=== PATIENT | male | born 1980 | race African-American/Black ===

== ENCOUNTER 2019-06-23 17:58 | Inpatient (IN) | payer BC, SELFPAY ==
[~2019-06-23 17:58] MED LIST: Iopamidol 370 76% 100 ML VIAL ONE
[2019-06-23 18:13] LABS: Hemoglobin 15.8 g/dL (14.0-18.0); Mean Corpuscular HGB CONC 32.6 g/dL (32.0-36.0); Mean Corpuscular Hemoglobin 29.1 pg (27.0-31.0); Mean Corpuscular Volume 89.2 fL (78.0-98.0); Mean Platelet Volume 7.7 fL (7.4-10.4); Platelet Count 285 thou/uL (130-400); RBC Distribution Width 11.7 % (11.5-14.5); Red Blood Cell (RBC) Count 5.45 mill/uL (4.70-6.10); White Blood Cell (WBC) Count 4.2 thou/uL (4.8-10.8)
--- NOTE | 2019-06-23 18:16 | RAD ---
Chest AP view INDICATION: Dizziness and fainting with history of ST elevated myocardial infarction COMPARISON: None FINDINGS: Lungs:The lungs are clear Cardiac silhouette:The cardiomediastinal silhouette appears within normal limits. Pulmonary vasculature:Normal Pleural spaces:No pleural effusion or pneumothorax is demonstrated. Upper abdomen:No abnormality seen. Osseous structures: No acute osseous abnormality. Additional findings:None. IMPRESSION: No acute cardiopulmonary abnormality.
[2019-06-23 18:19] LABS: INR-International Normal Ratio 1.1; Prothrombin Time 13.7 SEC (12.0-14.7)
--- NOTE | 2019-06-23 18:19 | CT ---
CT Brain WO Con: 06/23/2019 6:05 PM CLINICAL HISTORY: ; History of myocardial infarction; history of fall. IMAGING TECHNIQUE: Multiple CT images were obtained of the brain without IV contrast. COMPARISON: None. FINDINGS: Brain: No acute infarct or hemorrhage is evident. No midline shift. Ventricles: Normal. No hydrocephalus. Skull: Intact. Visualized Paranasal sinuses: Small air-fluid levels are seen within the sphenoid sinus and right max illary sinus which may reflect sequela of an acute sinusitis. No visible fractures grossly evident. There is no report of trauma by Dr. Acosta in the right maxillary region. Mastoid air cells:Clear. Extracranial soft tissues:Normal. IMPRESSION: No acute intracranial abnormality. Small air-fluid levels within the right maxillary sinus and right sphenoid sinus may reflect acute si nusitis. Findings called to Dr. Acosta at 6:16 PM on June 23, 2019.
[2019-06-23 18:20] LABS: PTT 21.7 SEC (22.9-36.1)
[2019-06-23] MEDS ORDERED: Heparin (Artline) 1,000 ML ONE (18:24)
[2019-06-23 18:26] LABS: ALT (SGPT) 20 U/L (8-55); AST (SGOT) 23 U/L (5-34); Albumin 4.5 g/dL (3.5-5.0); Alkaline Phosphatase 96 U/L (40-110); Anion Gap 15 mmol/L (10-20); BUN (Urea Nitrogen) 13 mg/dL (8.9-20.6); Bilirubin, Total 0.7 mg/dL (0.2-1.2); CK (CPK) 206 U/L (30-200); Calc. Creatinine Clearance 0 mL/min (70-130); Carbon Dioxide 27 mmol/L (22-29); Chloride 104 mmol/L (98-107); Estimated GFR-MDRD 58; Globulin 3.3 g/dL (2.4-3.5); Glucose 96 mg/dL (70-105); Potassium 3.9 mmol/L (3.5-5.1); Protein, Total 7.8 g/dL (6.0-8.3); Sodium 142 mmol/L (136-145)
[2019-06-23 18:35] LABS: Eosinophils 6 % (0-10); Lymphocytes 26 % (21-51); MDiff Complete? YES; Monocytes 7 % (0-10); Neutrophil 20 % (42-75); Platelet Morphology Comment Appears Adequate; Polychromasia SLIGHT = 2-3 cells (100X) (0-2/hpf); Reactive Lymphocytes 39 % (0-10); Reflex for Review?? YES
[2019-06-23] MEDS ORDERED: Fentanyl 100 MCG/2 ML VIAL ONE (18:39)
[2019-06-23] MEDS ORDERED: Midazolam HCl 2 mg/2 ml Vial ONE (18:39)
[2019-06-23 18:48] LABS: CKMB 1.9 ng/mL (0-6.6)
[2019-06-23] MEDS ORDERED: Sodium Chloride 0.9% 200 ML IV PRN (19:00)
[2019-06-23] MEDS ORDERED: Sodium Chloride 0.9% 1,000 ML IV SCH (19:00)
[2019-06-23] MEDS ORDERED: Acetaminophen/Codeine 30-300mg Tablet PO PRN ×2 (19:00)
[2019-06-23] MEDS ORDERED: Ondansetron PF 4 MG/2 ML Vial ONE (19:10)
--- NOTE | 2019-06-23 20:53 | CON ---
DATE OF CONSULTATION: HISTORY OF PRESENT ILLNESS: Benita Ornelas is a 38-year-old black male without previous history except hypertension, which he states he does not take any medications. Today he was at [employer], became lightheaded and dizzy and then apparently had a syncopal episode, falling to the ground, striking his chin. He does not remember falling or hitting the ground, just remembers waking up on the ground. Paramedics were called. He was brought to the ER, found to have abnormal EKG and STEMI has been activated. He denies any chest discomfort. He denies any exertional dyspnea. He has never had a previous syncopal episode. He denies any nausea, vomiting, or diarrhea recently. PAST MEDICAL HISTORY: Hypertension, untreated. No history of diabetes or hypercholesterolemia. MEDICATIONS: None. ALLERGIES: NONE. OPERATIONS: None. SOCIAL HISTORY: He occasionally smokes and drinks. FAMILY HISTORY: Negative for coronary artery disease. PHYSICAL EXAMINATION: VITAL SIGNS: Blood pressure 130/82, pulse of 90. HEENT: PERRL. NECK: Supple. CHEST: Clear. CARDIAC: S1 and S2 normal without any S3, S4, or murmurs. ABDOMEN: Normal bowel sounds without tenderness or organomegaly. EXTREMITIES: Revealed no clubbing, cyanosis, or edema. NEUROLOGIC: Grossly intact. SKIN: Warm and dry. LABORATORY DATA: EKG revealed normal sinus rhythm with ST elevation of approximately 2 mm in V2, 1 mm in V1. The patient has undergone a head CT, which apparently was unremarkable. Sodium 142, potassium 3.9, chloride 104, carbon dioxide 27, BUN 13, creatinine 1.37. Troponin I 0.046. INR 1.1, white count 4200, hemoglobin 15.8, hematocrit 48.6, platelets 285,000. IMPRESSION: 1. Syncopal episode of uncertain etiology. 2. Abnormal EKG. These findings could represent an anterior ST elevation myocardial infarction, left ventricular hypertrophy or early repolarization. He does not have any chest discomfort; however, with circumstance definitely should go to the civil laboratory technician emergently. 3. Hypertension, untreated. 4. Chronic kidney disease. PLAN: Situation discussed with patient. It is recommended that he undergo emergent catheterization. Risks were discussed including , myocardial infarction, dye reaction, vascular injury, CVA, transfusion, limb loss, renal loss, etc. Also risk of intervention with PTCA and stent placement were discussed including , myocardial infarction, emergent CABG, restenosis, stent thrombosis, vessel perforation, etc. He understands and agrees to proceed. Also, urine drug screen will be obtained. Job ID: [id number]
[2019-06-23 21:16] VITALS: BMI 29.5
[2019-06-24 03:15] LABS: Amphetamine Not Detected (NotDetected); Barbiturates Screen Not Detected (NotDetected); Benzodiazepine Screen Not Detected (NotDetected); Cocaine Metabolite Screen Not Detected (NotDetected); Medtox Control Line Valid? VALID (VALID); Medtox Reader # READER 4; Methadone Not Detected (NotDetected); Methamphetamine Not Detected (NotDetected); Opiate Screen Not Detected (NotDetected); Oxycodone Screen Not Detected (NotDetected); Phencyclidine (PCP) Not Detected (NotDetected); THC/Cannabinoid Screen Detected (NotDetected); Tricyclic Screen Not Detected (NotDetected)
[2019-06-24] MEDS ORDERED: Senokot S 8.6-50 MG TAB PO PRN (03:53)
[2019-06-24] MEDS ORDERED: Calcium Carbonate 500 MG ChewTAB PO PRN (03:53)
[2019-06-24] MEDS ORDERED: Acetaminophen 325 MG TAB PO PRN (03:53)
[2019-06-24] MEDS ORDERED: Mag-Al 1200 mg/1200 mg/30 ML UDCUP PO PRN (03:53)
[2019-06-24] MEDS ORDERED: Polyethylene Glycol 3350 17 GM Packet PO PRN (03:53)
[2019-06-24] MEDS ORDERED: Ondansetron ODT 4 MG TAB PO PRN (03:53)
[2019-06-24] MEDS ORDERED: Ondansetron PF 4 MG/2 ML Vial IVP PRN (03:53)
[2019-06-24] MEDS ORDERED: Labetalol HCl 100 MG/20 ML VIAL SLOW IVP PRN (04:06)
--- NOTE | 2019-06-24 04:40 | CON ---
DATE OF CONSULTATION: CHIEF COMPLAINT: Syncopal episode. REASON FOR CONSULTATION: Medical management. HISTORY OF PRESENT ILLNESS: The patient is a 38-year-old male with hypertension, currently on no medications, presented to the emergency room with a syncopal episode while at work. Prior to syncope, he felt weak and dizzy. He had mild facial pain. There was no nausea, vomiting, diaphoresis, or palpitations reported. The patient underwent emergent cardiac catheterization for STEMI activation that showed normal coronaries with moderately impaired ventricular function of 35%. PAST MEDICAL HISTORY: Hypertension. PAST SURGICAL HISTORY: Dental surgeries. ALLERGIES: NO KNOWN DRUG ALLERGIES. MEDICATIONS: Reviewed with the patient and none. SOCIAL HISTORY: He occasionally smokes and drinks. FAMILY HISTORY: Negative for coronary artery disease. REVIEW OF SYSTEMS: All other review of systems were reviewed and were found negative. PHYSICAL EXAMINATION: VITAL SIGNS: Temperature 98.2, pulse rate of 71, respiration of 16, blood pressure 143/96, O2 saturation 99% on room air. Orthostatic vitals are negative. GENERAL: A 38-year-old male in no apparent distress. LUNGS: Clear to auscultation bilaterally. No wheezing, rales, or rhonchi. HEART: S1 and S2 present. Regular rate and rhythm. No rubs or gallops. ABDOMEN: Soft, bowel sounds present. No rebound or guarding. EXTREMITIES: No edema or calf tenderness. NEUROLOGIC: Grossly nonfocal. Moves all 4 extremities. Power was 5/5 in all extremities. [id number] was normal. PSYCHIATRY: Alert, awake, oriented x3. PERIPHERAL VASCULAR: Radial pulses palpable bilaterally. MUSCULOSKELETAL: No joint swelling tenderness. LABORATORY FINDINGS: WBC of 4.2 with hemoglobin 15.8, neutrophil of 20%, with reactive lymphocytes of 39%. Creatinine of 1.37 with BUN of 13. LFTs in normal range. Troponin was 0.046. Urine drug screen was positive for cannabinoid. CT scan of the brain by my review was negative. IMAGING STUDIES: Chest x-ray by my review was negative for acute findings. EKG by my review showed sinus rhythm with ST elevation in anteroseptal leads. IMPRESSION: 1. Syncope of unclear etiology. 2. Acute kidney injury versus chronic kidney disease stage 3. 3. Abnormal EKGs. 4. Normal coronaries. 5. Untreated hypertension. 6. Tobacco dependence. 7. Cannabis abuse. 8. Leukopenia with lymphocytosis, suspected recent viral infection. 9. Ejection fraction of 35% on the cardiac catheterization. PLAN: The patient has been started on carvedilol. We will continue telemetry monitoring. Echocardiogram has been ordered. We will recheck the electrolytes in a.m. Lifestyle modification was emphasized. We will restart IV fluids if needed based on the a.m. labs. We will repeat CBC after 24 hours. Add p.r.n. medications. The patient understands the above plan of care. Thank you Dr. Mendes for this consultation. We will follow with you. Job ID: [id number]
[2019-06-24 05:07] LABS: Anion Gap 12 mmol/L (10-20); BUN (Urea Nitrogen) 13 mg/dL (8.9-20.6); Calc. Creatinine Clearance 124 mL/min (70-130); Calcium 8.4 mg/dL (7.8-10.44); Carbon Dioxide 24 mmol/L (22-29); Chloride 107 mmol/L (98-107); Estimated GFR-MDRD Greater than 90; Glucose 109 mg/dL (70-105); Magnesium 2.3 mg/dL (1.6-2.6); Potassium 4.1 mmol/L (3.5-5.1); Sodium 139 mmol/L (136-145)
[2019-06-24] MEDS: Carvedilol 3.125 MG TAB PO SCH ×2 (09:02→18:36)
[2019-06-24] MEDS: cloNIDine 0.1 MG TAB PO PRN (13:37)
[2019-06-24] MEDS: hydrALAZINE 20 MG/ML VIAL SLOW IVP PRN (15:13)
[2019-06-24] MEDS ORDERED: ALPRAZolam 0.25 MG TAB PO PRN (18:08)
[2019-06-25] MEDS: cloNIDine 0.1 MG TAB PO PRN (00:03)
[2019-06-25] MEDS: hydrALAZINE 20 MG/ML VIAL SLOW IVP PRN (01:05)
[2019-06-25 04:50] LABS: #Basophils 0.1 thou/uL (0.0-0.2); #Eosinphils 0.2 thou/uL (0.0-0.7); #Monocytes 0.4 thou/uL (0.11-0.59); #Neutrophils 1.7 thou/uL (1.40-6.50); %Basophils 2.1 % (0.0-1.0); %Eosinophils 3.9 % (0.0-10.0); %Lymphocytes 46.4 % (21.0-51.0); %Monocytes 8.4 % (0.0-10.0); %Neutrophils 39.1 % (42.0-75.0); Hemoglobin 14.3 g/dL (14.0-18.0); Mean Corpuscular HGB CONC 31.6 g/dL (32.0-36.0); Mean Corpuscular Hemoglobin 27.7 pg (27.0-31.0); Mean Corpuscular Volume 87.7 fL (78.0-98.0); Mean Platelet Volume 7.7 fL (7.4-10.4); Platelet Count 275 thou/uL (130-400); RBC Distribution Width 11.6 % (11.5-14.5); Red Blood Cell (RBC) Count 5.18 mill/uL (4.70-6.10); White Blood Cell (WBC) Count 4.3 thou/uL (4.8-10.8)
[2019-06-25 05:15] LABS: Anion Gap 10 mmol/L (10-20); BUN (Urea Nitrogen) 9 mg/dL (8.9-20.6); Calc. Creatinine Clearance 145 mL/min (70-130); Calcium 8.5 mg/dL (7.8-10.44); Carbon Dioxide 24 mmol/L (22-29); Cardiac Risk 5.1 (Less than 4.5); Chloride 106 mmol/L (98-107); Cholesterol 127 mg/dl (< 200 Desired); Estimated GFR-MDRD Greater than 90; Glucose 89 mg/dL (70-105); HDL Cholesterol 25 mg/dL (>60 Neg Risk); LDL Cholesterol, Calculated 85 mg/dL; Potassium 3.8 mmol/L (3.5-5.1); Sodium 136 mmol/L (136-145); Triglycerides 83 mg/dL (Less than 150)
[2019-06-25] MEDS: Carvedilol 3.125 MG TAB PO SCH ×2 (09:05→18:08)
--- NOTE | 2019-06-25 13:29 | PDOC.HOSPP ---
- Subjective Encounter Date: 06/25/19 Encounter Time: 07:00 Subjective: Pt seen for followup re; jaw swelling. c/o swelling over the right side of his jaw, started after syncopal episode. - Objective Vital Signs & Weight: Vital Signs (12 hours) Temp Pulse Pulse Pulse Resp BP BP 06/25/19 10:20 06/25/19 10:17 71 67 142/91 H 141/88 H 06/25/19 04:00 98.2 F 65 16 06/25/19 01:57 BP BP Pulse Ox Pulse Ox Pulse Ox 06/25/19 10:20 95 06/25/19 10:17 94 L 99 06/25/19 04:00 142/88 H 98 06/25/19 01:57 136/80 Weight Weight 200 lb 6 oz I&O: 06/24/19 06/25/19 06/26/19 06:59 06:59 06:59 Intake Total 1105 120 Output Total 350 Balance 755 120 Result Diagrams: 06/25/19 04:29 06/25/19 04:29 Additional Labs: Labs and MARs reviewed by me EKG Reviewed by me: Yes (Tele: NSR) Hospitalist ROS - Review of Systems ENT: reports: other (jaw swelling) Cardiovascular: denies: chest pain, palpitations, orthopnea, paroxysmal noc. dyspnea, edema, light headedness Gastrointestinal: denies: nausea, vomiting, abdominal pain, diarrhea, constipation, melena, hematochezia - Medication Medications: Active Medications Generic Name Dose Route Start Last Admin Trade Name Freq PRN Reason Stop Dose Admin Acetaminophen 650 mg 06/24/19 03:53 06/24/19 18:37 Tylenol PO 650 mg Q4H PRN Administration Headache/Fever/Mild Pain (1-3) Alprazolam 0.25 mg 06/24/19 18:08 06/24/19 18:37 Xanax PO 0.25 mg BIDPRN PRN Administration Anxiety Carvedilol 3.125 mg 06/24/19 08:00 06/25/19 09:05 Coreg PO 3.125 mg BID-WM RONNI Administration Clonidine 0.1 mg 06/24/19 10:42 06/25/19 00:03 Catapres PO 0.1 mg Q4H PRN Administration SBP Greater Than 170 Hydralazine HCl 10 mg 06/24/19 10:42 06/25/19 01:05 Apresoline SLOW IVP 10 mg Q6H PRN Administration SBP Greater Than 170 Labetalol HCl 10 mg 06/24/19 04:06 06/24/19 18:37 Normodyne SLOW IVP 10 mg Q4H PRN Administration Systolic BP > 180 Sacubitril/Valsartan 1 tab 06/24/19 21:00 06/25/19 09:04 Entresto 24 Mg-26 Mg Tablet PO 1 tab BID RONNI Administration - Exam General Appearance: NAD Eye: anicteric sclera ENT: moist mucosa ENT - other findings: swelling over right side of mandible near TMJ Neck: supple Heart: RRR, no rubs Respiratory: CTAB Gastrointestinal: soft, non-tender Extremities: no cyanosis Skin: no lesions Neurological: no weakness Psychiatric: normal affect, normal behavior Hosp A/P (1) Jaw swelling Code(s): R22.0 - LOCALIZED SWELLING, MASS AND LUMP, HEAD Status: Acute (2) Cardiomyopathy Code(s): I42.9 - CARDIOMYOPATHY, UNSPECIFIED Status: Acute (3) Tobacco abuse Code(s): Z72.0 - TOBACCO USE Status: Chronic (4) Cannabis abuse Code(s): F12.10 - CANNABIS ABUSE, UNCOMPLICATED Status: Chronic - Plan Continue Coreg and Entresto. Check mandibular x-rays. Pt counseled re; tobacco and cannabis cessation.
--- NOTE | 2019-06-25 14:59 | RAD ---
Radiograph mandible 4 views: DATE: 06/25/2019 HISTORY: 38-year-old male with traumatic jaw pain after fall. FINDINGS: No fracture is identified. However, noncontrast CT is much more sensitive than plain radiographs of t he mandible for the detection of fractures. IMPRESSION: Negative
[2019-06-25 19:52] VITALS: TEMP 98.3
[2019-06-25 19:54] VITALS: BP 156/88
--- NOTE | 2019-06-26 02:33 | DIS ---
DATE OF ADMISSION: 06/23/2019 DATE OF DISCHARGE: 06/25/2019 DISCHARGE DIAGNOSES: 1. Nonischemic cardiomyopathy with ejection fraction of 35% to 40% at catheterization. 2. Syncope of uncertain etiology. 3. Abnormal EKG with ST-elevation in V1 and V2, which may be related to early repolarization. 4. Normal coronary arteries. 5. Hypertension with systolics in the 140s at the present time. 6. Urine drug screen positive for cannabinoids. DISCHARGE MEDICATIONS: 1. Carvedilol 3.125 b.i.d. 2. Entresto 24/26 b.i.d. DISCHARGE DISPOSITION: The patient will be discharged with one-week monitor for further evaluation of his episode of syncope. HOSPITAL COURSE: Mr. Ornelas was brought from [facility], where he works. He apparently had an episode of syncope. He did have an abnormal EKG with ST- elevation in V1 and V2. He was not having any chest discomfort. However, with EKG findings, it was felt best taken to the lab systems analyst. Catheterization was found to have moderate left ventricular hypokinesis with ejection fraction of 35% to 40%, but normal coronary arteries. It was felt that he had a nonischemic cardiomyopathy. No arrhythmias were seen during this admission. He was placed on increasing dose of carvedilol and Entresto. He will be seen in three weeks for followup. Job ID: [id number] [facility]
== END 2019-06-25 19:30 | disposition home or self-care (01) | DRG 287 ==
LOC: ERS 17:58 → 2NO 18:58
PROVIDERS: ADMIT Internal Medicine Cardiovascular Disease; ATTEND Internal Medicine Cardiovascular Disease
PROC: 4A023N7 Measurement of Cardiac Sampling and Pressure, Left Heart, Percutaneous Approach (ICD-10-PCS; principal; 2019-06-23)
PROC: B2111ZZ Fluoroscopy of Multiple Coronary Arteries using Low Osmolar Contrast (ICD-10-PCS; 2019-06-23)
PROC: B2151ZZ Fluoroscopy of Left Heart using Low Osmolar Contrast (ICD-10-PCS; 2019-06-23)
DX: I42.8 Other cardiomyopathies (principal); N17.9 Acute kidney failure, unspecified; R55 Syncope and collapse; R94.31 Abnormal electrocardiogram [ECG] [EKG]; I12.9 Hypertensive chronic kidney disease with stage 1 through stage 4 chronic kidney disease, or unspecified chronic kidney disease; N18.3 Chronic kidney disease, stage 3 (moderate); F17.200 Nicotine dependence, unspecified, uncomplicated; F12.10 Cannabis abuse, uncomplicated; D72.819 Decreased white blood cell count, unspecified
CPT/HCPCS: 12013; 36415; 70110; 70450; 71045; 80048; 80053; 80061; 80306; 82550; 82553; 83735; 84443; 84484; 85025; 85060; 85347; 85610; 85730; 93005; 93306; 93458; 93798; 94760; 96374; 99152; C1769; J0360; J1644; J2250; J2405; J3010; Q9967